=== PATIENT | male | born 1945 | race Two or more races ===

== ENCOUNTER → 2024-08-08 | Outpatient (CLI) | payer OTHER, SELFPAY ==
[2024-08-08 16:03] LABS: Prostate Specific Antigen < 0.10 ng/mL (0-4.00)
== END | disposition home or self-care (01) ==
LOC: COPL 14:47
PROVIDERS: PCP Family Medicine; Referring Provider Urology; Visit Provider Urology
DX: C61 Malignant neoplasm of prostate (principal)
CPT/HCPCS: 36415; 84153

== ENCOUNTER → 2024-08-10 | Outpatient (BNVA) | payer OTHER, SELFPAY | END | disposition home or self-care (01) | PROVIDERS: PCP Family Medicine; Referring Provider Family Medicine; Visit Provider Urology | DX: N40.0 Benign prostatic hyperplasia without lower urinary tract symptoms (principal); C61 Malignant neoplasm of prostate; N39.3 Stress incontinence (female) (male); N52.9 Male erectile dysfunction, unspecified; I10 Essential (primary) hypertension; E66.9 Obesity, unspecified; Z68.33 Body mass index [BMI] 33.0-33.9, adult; E78.00 Pure hypercholesterolemia, unspecified; F32.A Depression, unspecified | CPT/HCPCS: 81003; 99213; G0463 ==

== ENCOUNTER → 2025-02-12 | Outpatient (CLI) | payer OTHER, SELFPAY ==
[2025-02-12 14:09] LABS: Prostate Specific Antigen < 0.10 ng/mL (0-4.00)
== END | disposition home or self-care (01) ==
LOC: COPL 12:46
PROVIDERS: PCP Family Medicine; Referring Provider Urology; Visit Provider Urology
DX: C61 Malignant neoplasm of prostate (principal)
CPT/HCPCS: 36415; 84153

== ENCOUNTER → 2025-02-15 | Outpatient (BNVA) | payer OTHER, SELFPAY ==
--- NOTE | 2025-02-15 18:10 | UCCONSULT_ITS ---
RE: NIKKI HANNAH : 1945 DATE OF CONSULTATION: 02/15/2025 CHIEF COMPLAINT: Giant prostatomegaly, status post robotic assisted simple prostatectomy done on 04/21/2022 at [facility] by Dr. Bullard. The patient was found to have adenocarcinoma of the prostate gland with [place] score of 3+4=7. Positive margins of adenoma. This was an incidental finding. The patient was scheduled for robotic-assisted radical prostatectomy and bilateral pelvic lymph node dissection again done by Dr. Bullard at [facility] on 08/10/2022. The patient has done very well. He has no fever, chills, gross hematuria. He has stress urinary incontinence, grade 1. I reviewed the pathology report from [facility] of his robotic assisted radical prostatectomy. This revealed residual prostatic adenocarcinoma is not identified. The stage of the cancer is pT0, N0, Mx. He has no loss of weight or appetite. No gross hematuria. The patient has done very well. COMORBID CONDITIONS: 1. Hypertension. 2. Obesity. Past medical history, family history, review of the systems, personal history, please refer to patient's history form dated 02/15/2025, it is in HPI, in EMR.. PHYSICAL EXAMINATION: VITAL SIGNS: Stable. They are in HPI, in EMR. GENERAL: Condition is satisfactory. Orientation x3. HEENT: Normocephalic and atraumatic. Eyes: No anemia or jaundice. NECK: Supple. Trachea is central. Thyroid is not enlarged. CHEST: Symmetrical. HEART: Regular rate and rhythm. ABDOMEN: No masses. Liver, spleen, and kidney not palpable. No CVA tenderness. There is no incisional hernia. EXTREMITIES: Revealed no edema, cyanosis or clubbing. VARIOUS LABORATORIES: BUN is 13, creatinine 0.8, GFR is over 60. This was done on 08/05/2022. PSA on 02/12/2025 is less than 0.10. Urine is negative for any infection. RECOMMENDATION: PSA in 6 months and reappointment in 6 months. DT: 14:06:11 TT: 18:08:00 Ref: [id number] - TID: [id number]
== END | disposition home or self-care (01) ==
PROVIDERS: PCP Family Medicine; Referring Provider Family Medicine; Visit Provider Urology
DX: N40.0 Benign prostatic hyperplasia without lower urinary tract symptoms (principal); C61 Malignant neoplasm of prostate; I10 Essential (primary) hypertension; E66.9 Obesity, unspecified; Z68.33 Body mass index [BMI] 33.0-33.9, adult; E78.00 Pure hypercholesterolemia, unspecified; F32.A Depression, unspecified
CPT/HCPCS: 81003; 99212; G0463

== ENCOUNTER → 2025-05-09 | Outpatient (CLI) | payer OTHER, SELFPAY ==
[2025-05-09 09:28] LABS: Collection Type, Urine Clean Catch
[2025-05-09 10:31] LABS: Basophils # (Auto) 0.1 Thou/mm3 (0.0-0.2); Basophils % (Auto) 1 % (0-2.5); Eosinophils # (Auto) 0.1 Thou/mm3 (0.0-0.5); Eosinophils % (Auto) 1 % (0-10); Hematocrit 49.9 % (41.0-53.0); Hemoglobin 16.7 g/dL (13.5-16.0); Immature Granulocytes Auto 0.02 Thou/mm3 (0.00-0.00); Lymphocytes # (Auto) 1.1 Thou/mm3 (1.0-4.8); Lymphocytes % (Auto) 16 % (10-50); Mean Corpuscular HGB Conc 33.5 g/dl (31.0-37.0); Mean Corpuscular Hemoglobin 31.6 pg (25.0-35.0); Mean Corpuscular Volume 94 fL (80-100); Monocytes # (Auto) 0.7 Thou/mm3 (0.0-0.8); Monocytes % (Auto) 11 % (0-12); Neutrophils # (Auto) 4.9 Thou/mm3 (1.8-7.7); Neutrophils % (Auto) 72 % (37-80); Nucleated Red Blood Cell # 0.00 Thou/mm3 (0.00-0.00); Nucleated Red Blood Cell % 0 /100 WBC (0); Platelet Count 136 Thou/mm3 (140-440); RDW Standard Deviation 50.4 fL (35.1-43.9); Red Blood Count 5.29 Miln/mm3 (4.50-5.90); White Blood Count 6.8 Thou/mm3 (3.8-10.6)
[2025-05-09 10:33] LABS: Bilirubin,Urine Negative (Negative); Blood,Urine Negative (Negative); Clarity,Urine Clear (Clear/Hazy); Color,Urine Yellow (Lt Yel-Yel); Glucose, Urine Negative (Negative); Ketones,Urine Negative (Negative); Leukocyte Esterase,Urine Negative (Negative); Nitrite,Urine Negative (Negative); PH,Urine 6.5 (5.0-7.0); Protein,Urine 1+ (Neg - Trace); RBC,Urine 4 /hpf (0-3); Specific Gravity,Urine 1.029 (1.001-1.035); Squamous Epithelial Cell,Urine 4 /hpf (0-5); Urobilinogen,Urine 4.0 mg/dL (0.0-1.0); WBC,Urine 1 /hpf (0-5)
[2025-05-09 10:45] LABS: Alanine Aminotransferase 42 U/L (10-49); Albumin, Serum 5.0 gm/dL (3.4-4.8); Albumin/Globulin Ratio 1.9 (1.2-2.2); Alkaline Phosphatase 56 U/L (46-116); Anion Gap 13 (7-16); Aspartate Amino Transferase 54 U/L (0-34); BUN/Creatinine Ratio 8 Ratio (12-20); Bilirubin,Total 2.0 mg/dL (0.3-1.2); Blood Urea Nitrogen 8 mg/dL (9-23); Calcium 9.8 mg/dL (8.3-10.6); Calcium (Corrected) 9.8 mg/dL (8.5-10.1); Carbon Dioxide 25.9 mMol/L (20.0-31.0); Cardiac Risk Estimate 3.1 RATIO (4.0-6.7); Chloride 104 mMol/L (98-107); Cholesterol 171 mg/dL (132-200); Creatinine (Component) 1.0 mg/dL (0.6-1.3); Globulin 2.6 gm/dL (2.3-3.5); Glucose 137 mg/dL (74-106); HDL Cholesterol 56 mg/dL (40-60); LDL Cholesterol,Calculated 76 mg/dL (0-130); Osmolality,Calculated 285 (275-295); Potassium 4.2 mMol/L (3.4-5.1); Sodium 143 mMol/L (136-145); Thyroid Stimulating Hormone 1.51 uIU/mL (0.55-4.78); Total Protein 7.6 gm/dL (5.7-8.2); Triglycerides 193 mg/dL (30-150); eGFR > 60 See Note
== END | disposition home or self-care (01) ==
LOC: COPL 09:03
PROVIDERS: PCP Family Medicine; Referring Provider Family Medicine; Visit Provider Family Medicine
DX: I10 Essential (primary) hypertension (principal); E78.2 Mixed hyperlipidemia
CPT/HCPCS: 36415; 80053; 80061; 81001; 84443; 85025